=== PATIENT | female | born 1935 | race Caucasian/White ===

== ENCOUNTER → 2017-08-09 | Outpatient (CLI) | payer OTHER ==
[~2017-08-09] MED LIST: IOPAMIDOL (ISOVUE 370) 100 ML BTL IV ONE
== END ==
LOC: FIMAGING 14:49
PROVIDERS: ATTEND Internal Medicine
DX: S22.050A Wedge compression fracture of T5-T6 vertebra, initial encounter for closed fracture (principal); S22.080A Wedge compression fracture of T11-T12 vertebra, initial encounter for closed fracture
CPT/HCPCS: 71275; Q9967; 86304-90

== ENCOUNTER → 2017-08-20 | Outpatient (CLI) | payer OTHER | LOC: FIMAGING 15:25 | PROVIDERS: ATTEND Internal Medicine | DX: N83.202 Unspecified ovarian cyst, left side (principal) ==

== ENCOUNTER → 2018-04-11 | Outpatient (CLI) | payer OTHER | LOC: BMCIMAGING 13:00 | PROVIDERS: ATTEND Physician Assistant | DX: M25.851 Other specified joint disorders, right hip (principal); M25.852 Other specified joint disorders, left hip ==

== ENCOUNTER 2018-04-25 17:34 | Emergency (ER) | payer OTHER ==
--- NOTE | 2018-04-25 18:16 | EDPHY ---
H & P Stated Complaint: R leg injury - Personal History Current Tetanus/Diphtheria Vaccine: Yes Current Tetanus Diphtheria and Acellular Pertussis (TDAP): Yes - Medical/Surgical History Hx Asthma: No Hx Chronic Respiratory Disease: No Hx Diabetes: No Hx Cardiac Disease: No Hx Renal Disease: No Hx Cirrhosis: No Hx Alcoholism: No Hx HIV/AIDS: No Hx Splenectomy or Spleen Trauma: No Other PMH: hypothyroid, ovarian cysts, - Social History Smoking Status: Never smoked Time Seen by Provider: 04/25/18 17:45 HPI/ROS: CHIEF COMPLAINT: Evaluation of continued right inguinal and buttock pain HISTORY OF PRESENT ILLNESS: 82-year-old female states that on April 08 a 140 lb dog knocked her over landing on her buttock. She was seen 3 days later at [facility] which he was diagnosed with an inferior pubic ramus fracture. She started physical therapy today and mentioned to the physical therapist that she has continued intermittent right inguinal pain with certain movements and the physical therapist recommend she go to the ER for more advanced imaging prior to initiating further exercises. The patient is able to bear partial weight albeit with pain intermittently to the right buttock and right inguinal region. PRIMARY CARE PROVIDER: Dr. Sherrill Davis REVIEW OF SYSTEMS: A ten point review of systems was performed and is negative with the exception of the items mentioned in the HPI PAST MEDICAL & SURGICAL HISTORY: No anticoagulant use SOCIAL HISTORY: lives with PHYSICAL EXAM (Prior to examination, patient consented to physical exam, hands were washed and my usual and customary physical exam procedures followed) 1) GENERAL: Well-developed, well-nourished, alert and oriented. Appears to be in no acute distress. 2) HEAD: Normocephalic, atraumatic 3) HEENT: Pupils equal, round, reactive to light bilaterally. Sclera anicteric. 4) NECK: Full range of motion, no meningeal signs. 5) LUNGS: Clear auscultation bilaterally, no wheezes, no rhonchi, no retractions. 6) HEART: Regular rate and rhythm, no murmur, no heave, no gallop. 7) ABDOMEN: No guarding, no rebound, no focal tenderness, negative McBurney's, negative Parikh's, negative Rovsing's, negative peritoneal sign, 8) MUSCULOSKELETAL: Right lower extremity: Tenderness to palpation right sacral ala with no visible trauma. Right lower extremity has full pain-free range of motion of the femur on acetabulum including axial loading. No shortening no malrotation. No greater trochanteric pain. DP PT pulses present and brisk. No visible signs of trauma. Soft compartments. Otherwise, Moving all extremities, no focal areas of tenderness, no obvious trauma. No peripheral edema or discoloration. 9) BACK: No CVA tenderness, no midline vertebral tenderness, no fluctuance, no step-off, no obvious trauma, no visual or palpable abnormality. 10) SKIN: No rash, no petechiae. 11) Psychiatric: Patient is oriented X 3, there is no agitation. DIFFERENTIAL DIAGNOSIS: In no particular order including but not limited to fracture, sprain, strain, dislocation (Miguel Angel Stockton) Constitutional: Initial Vital Signs Temperature (C) 36.5 C 04/25/18 17:40 Heart Rate 74 04/25/18 17:40 Respiratory Rate 16 04/25/18 17:40 Blood Pressure 167/87 H 04/25/18 17:40 O2 Sat (%) 96 04/25/18 17:40 O2 Delivery Mode Room Air Allergies/Adverse Reactions: amoxicillin Allergy (Verified 04/25/18 17:39) Home Medications: Medication Instructions Recorded Synthroid 04/25/18 Medical Decision Making - Diagnostics Imaging Results: Imaging Impressions Pelvis CT 04/25/18 17:52 Impression: 1. There is an acute/subacute right inferior ischial pubic ramus fracture, with a tiny associated adjacent intramuscular hematoma. 2. Bilateral hip degenerative change with a cystic features consistent with gout /pseudogout with adjacent pericapsular chondrocalcinosis and small bilateral hip joint effusions. There is also some fluid which tracks from an anterior periarticular location into the posterior margin of the right iliacus muscle. There is no pathologic femoral neck fracture appreciated, although the bones are significantly demineralized as well. If there is progression of the patient' s symptoms, however, MR imaging may be of benefit to evaluate for occult bone marrow edema/insufficiency fracture. 3. There is a right lateral S2 cortical fracture. 4. There is a 4.0 cm left ovarian cyst, and follow-up pelvic sonography is suggested in this postmenopausal female. Findings were discussed with Aj Stockton PA-C at 18:56, on 04/25/2018. Images reviewed myself (Miguel Angel Stockton) ED Course/Re-evaluation: 7:07 p.m.: Re-evaluation. Discussed the imaging results the patient showing a a ischial pubic ramus fracture and right sacral ala S2 fracture. She is neurologically intact lower extremities and was rechecked at this time. No footdrop, no toe drop. At this time I think the patient can be discharged follow up with [facility] and with her physical therapist. Given copies of her imaging results. She feels safe being discharged she is able to care for self. Admission has been offered however she declines this. Patient was also noted to have an incidental left ovarian cyst. I discussed this with her. I recommend she discuss with primary care provider regarding repeat and follow up imaging studies. Usual and customary discharge precautions and instructions provided. I saw this patient independently based on established practice protocols. Care of patient under supervision of secondary supervising physician Dr Fam . ( Miguel Angel Stockton) I did not see this patient while she was in the emergency department. However her care was discussed with the PA while the patient was in the department. I agree with treatment plan and management (Conner Fam) Departure - Departure Disposition: Home, Routine, Self-Care Clinical Impression: sacral ala fracture right, Left ovarian cyst Fracture of pubic ramus Qualifiers: Encounter type: initial encounter Fracture type: closed Laterality: right Qualified Code(s): S32.591A - Other specified fracture of right pubis, initial encounter for closed fracture Condition: Good Instructions: Ovarian Cyst (ED), Pelvic Fracture (ED), Sacral Fracture (ED) Additional Instructions: Return to the ER if you have worsening pain, if you feel you are unable to care for your self or any other symptoms that concern you. You were noted to have an incidental left ovarian cyst. I recommend you discuss this with her primary care provider for further management and possible imaging. Referrals: Brandon Bush MD [Medical Doctor] - 2-3 days, call for appt.
[2018-04-25 19:18] VITALS: BP 116/81
== END 2018-04-25 19:39 | disposition home or self-care (01) ==
DX: S32.19XA Other fracture of sacrum, initial encounter for closed fracture (principal); S32.591A Other specified fracture of right pubis, initial encounter for closed fracture; N83.202 Unspecified ovarian cyst, left side; W20.8XXA Other cause of strike by thrown, projected or falling object, initial encounter; Y99.8 Other external cause status